=== PATIENT | female | born 1995 | race Caucasian/White ===

== ENCOUNTER 2018-02-07 21:30 | Emergency (ER) | payer OTHER ==
[~2018-02-07] VITALS: Ht 170.2 cm; Wt 62.7 kg
[2018-02-07 21:42] VITALS: Ht 170.2 cm; Wt 62.7 kg
[2018-02-07] MEDS ORDERED: ACETAMINOPHEN 500 MG TAB PO STA (21:51)
[2018-02-07] MEDS ORDERED: KETOROLAC TROMETHAMINE 30 MG/ML VIAL IV STA (21:51)
[2018-02-07] MEDS ORDERED: ESCI1TAB10 PO (22:09)
[2018-02-07] MEDS ORDERED: MULT-506 PO (22:09)
[2018-02-07] MEDS ORDERED: CETI10TA84 PO (22:09)
--- NOTE | 2018-02-07 22:33 | DIAGNOSTIC IMAGING REPORT ---
CHEST 2 VIEWS ROUTINE CLINICAL HISTORY: cough/fever dyspnea COMPARISON STUDY: No previous studies for comparison. FINDINGS: The bones soft tissues and hemidiaphragms are normal. The cardiomediastinal silhouette is normal. The lungs are clear. The pulmonary vasculature is normal. IMPRESSION: Negative chest. The above report was generated using voice recognition software. It may contain grammatical, syntax or spelling errors. Electronically signed by: Kobe Chávez M.D. 02/07/2018 10:32 PM Dictated Date/Time: 02/07/2018 10:32 PM
[2018-02-07 23:28] VITALS: BP 104/54; PULSE 82; TEMP 37.3; O2SAT 97
--- NOTE | 2018-02-08 00:53 | EMERGENCY ROOM VISIT NOTE ---
History First contact with patient: 21:45 Chief Complaint: FLU LIKE SX Stated Complaint: HEADACHE, CHILLS, ACHES, NAUSEA History of Present Illness The patient is a 22 year old female who presents to the Emergency Room with complaints of fever, chills, myalgias, arthralgias, headache with mild sore throat and cough for the past day. Patient took Motrin 6 hours ago. She has been outside and possibly had ticks on her. No known tick bites though. No temperature was taken. Patient denies chest pain, dyspnea, neck stiffness, abdominal pain, vomiting, diarrhea, urinary symptoms. She is tolerating p.o. fluids and food. Review of Systems An 10 system review of systems was completed with positives and pertinent negatives listed in the HPI. Past Medical/Surgical History Anxiety, seasonal allergies, wisdom teeth extraction Social History Smoking Status: Never Smoker Smokeless Tobacco Use: No Alcohol Use: none Drug Use: none Occupation Status: [employer] student Current/Historical Medications Scheduled Cetirizine (Zyrtec), 10 MG PO DAILY Escitalopram Oxalate (Lexapro), 20 MG PO DAILY Multivitamin (Multivitamin), 1 TAB PO DAILY Physical Exam Vital Signs Date Time Temp Pulse Resp B/P (MAP) Pulse Ox O2 Delivery O2 Flow Rate FiO2 02/07/18 23:28 37.3 82 18 104/54 97 Room Air 02/07/18 21:42 37.7 93 18 118/76 96 Room Air Physical Exam VITALS: Vitals are noted on the nurse's note and reviewed by myself. Vital signs low-grade fever. GENERAL: Pleasant female, in no acute distress, nondiaphoretic, well-developed well-nourished. SKIN: The skin was without rashes, erythema, edema, or bruising. There is no tenting of the skin. Capillary reflex less than 2 seconds. HEAD: Normocephalic atraumatic. EARS: External auditory canals clear, tympanic membranes pearly cervantes without erythema or effusion bilaterally. EYES: Pupils equal round and reactive to light and accommodation. Conjunctivae without injection, sclerae without icterus. Extraocular movements intact. NOSE: Patent, turbinates without inflammation or discharge. No sinus tenderness. MOUTH: Mucous membranes moist. Pharynx without erythema or exudate. Uvula midline. Airway patent. Tongue does not deviate. NECK: Supple without nuchal rigidity. No lymphadenopathy. No thyromegaly. Cervical spine is nontender. No JVD. HEART: Regular rate and rhythm without murmurs gallops or rubs. LUNGS: Clear to auscultation bilaterally without wheezes, rales or rhonchi. No retractions or accessory muscle use. ABDOMEN: Positive bowel sounds x 4. Normal tympanic percussion. Soft, nontender, without masses or organomegaly. Ohara sign negative. No guarding or rebound tenderness. No CVA tenderness MUSCULOSKELETAL: No muscle atrophy, erythema, or edema noted. NEURO: Patient was alert and oriented to person place and time. Normal sensation to light and sharp touch. No focal neurological deficits. Medical Decision & Procedures Laboratory Results Test 02/07/18 22:05 Human Chorionic Gonadotropin, Qual NEG (NEG) Lyme Disease IgG Antibody NEG (NEG) Lyme Disease IgM Antibody NEG (NEG) Medications Administered Medications (Trade) Dose Ordered Sig/Lianne Route Start Time Stop Time Status Last Admin Dose Admin Ketorolac Tromethamine (Toradol Inj) 10 mg NOW STAT IV 02/07/18 21:51 02/07/18 21:53 DC 02/07/18 22:15 10 MG Acetaminophen (Tylenol Tab) 1,000 mg NOW STAT PO 02/07/18 21:51 02/07/18 21:53 DC 02/07/18 22:14 1,000 MG ED Course Prior records/ancillary studies reviewed. Triage Nursing notes reviewed. The patient's history was concerning for fever. Differential diagnosis: Etiologies such as viral syndrome, otitis, pharyngitis, pneumonia, influenza, meningitis, Lyme's disease, sepsis, bacteremia, as well as others were entertained. Physical examination: Patient is alert, interactive and well-appearing ER treatment provided: Tylenol, Toradol, p.o. fluids On reassessment the patient felt better. Diagnostics interpreted by me: The labs revealed negative Lyme's. Negative strep test Imaging studies: [~ rep ct add3]] CHEST 2 VIEWS ROUTINE CLINICAL HISTORY: cough/fever dyspnea COMPARISON STUDY: No previous studies for comparison. FINDINGS: The bones soft tissues and hemidiaphragms are normal. The cardiomediastinal silhouette is normal. The lungs are clear. The pulmonary vasculature is normal. IMPRESSION: Negative chest. The above report was generated using voice recognition software. It may contain grammatical, syntax or spelling errors. Electronically signed by: Kobe Chávez M.D. This appears to be consistent with fever with flulike illness most likely viral in etiology. Patient no pneumonia. Negative strep test. Negative Lyme screen. Patient had no signs of meningitis. She was well-appearing. She was tolerating fluids. Patient was advised to take medications as directed, rest, stay well-hydrated follow-up health services in a few days or here in the ER sooner for high fevers, lethargy, vomiting, worsening signs or symptoms or as needed. Patient's immunizations were current along with the meningococcal vaccine and has not traveled recently. By the evaluation outlined above emergent etiologies such as otitis, pharyngitis, pneumonia, meningitis, urinary tract infection, sepsis, bacteremia, as well as others were deemed relatively unlikely. The pt informed about the findings as listed above. All questions were answered and pleased with the treatment. Return instructions were outlined and the patient was discharged in stable condition. Referral: The patient was referred back to their primary care physician/S for follow-up in 2 to 3 days for a recheck of the current condition. The chart was completed utilizing [employer] voice recognition software. Grammatical errors, random word insertions, pronoun errors, and incomplete sentences are an occassional consequence of this system due to software limitations, ambient noise, and hardware issues. Any formal questions or concerns about the content, text, or information contained within the body of this dictation should be directly addressed to the physician commissary assistant for clarification. Medical Decision As above Medication Reconcilliation Current Medication List: was personally reviewed by me Blood Pressure Screening Patient's blood pressure: Normal blood pressure Impression Primary Impression: Influenza-like symptoms Departure Information Dispostion Home / Self-Care Condition GOOD Forms HOME CARE DOCUMENTATION FORM, School Instructions, Return To School: 2 days IMPORTANT VISIT INFORMATION Patient Instructions Fever - [facility], [facility] Additional Instructions Acetaminophen(Tylenol) may be used for fever or pain. Use 1000mg every six hours as needed. Avoid using more than 3000mg in a 24 hour period. (AND/OR) Ibuprofen(Motrin, Advil) may be used for fever or pain. Use 600mg every six hours as needed. Take with food. Avoid using more than 2400mg in a 24 hour period. Do not use 2400mg per day for more than three consecutive days without physician direction. Prolonged inappropriate use can lead to stomach upset or ulcers. Afrin nasal spray: 2-3 sprays to each nostril twice daily as needed for congestion. Do not use for more than 3-4 days because it can lead to worsening rebound congestion. Pseudoephedrine(Sudaphed): 30-60mg every 6 hours as needed for nasal congestion. Do not take this with other stimulant products or supplements. Rest and drink plenty of fluids. Controlling your fever with Tylenol and Ibuprofen as above will make you feel better. Wash your hands after nose blowing, sneezing, or coughing. Most germs are spread through contact, therefore improper hygiene may result in your close contacts and loved ones becoming ill just like you. Continue current medications. Return to the ER for severe headache, neck stiffness, chest pain, difficulty breathing, fevers, vomiting, worsening of your condition, or as needed. Follow up with your primary physician this week for a recheck of your current condition. School Instructions Return To School: 2 days
== END 2018-02-07 23:40 | disposition home or self-care (01) ==
LOC: C.EDB 21:33
DX: R50.9 Fever, unspecified (principal); M79.1 Myalgia; M25.50 Pain in unspecified joint; R51 Headache; J02.9 Acute pharyngitis, unspecified; R05 Cough; F41.9 Anxiety disorder, unspecified; Z79.899 Other long term (current) drug therapy